=== PATIENT | male | born 1960 | race Caucasian/White ===

== ENCOUNTER → 2018-03-11 | Day surgery (SDC) | payer MEDICAID ==
[2018-03-09 11:02] VITALS: BMI 35.7
[~2018-03-11] MED LIST: LACTATED RINGERS 1,000 ML IV SCH; LIDOCAINE 1% 20 ML VIAL (10MG/ML) FOR IV START INTRADERMA ONE; MIDAZOLAM 2 MG/2 ML VIAL ONE; PROPOFOL 10 MG/ML 20 ML VIAL IV ONE; fentaNYL (PF) 50 MCG/ML 2 ML AMP ONE
[2018-03-11 09:46] VITALS: TEMP 98
--- NOTE | 2018-03-11 10:21 | P.GSHP ---
History of Present Illness H&P Date: 03/11/18 Chief Complaint: Colon cancer screening Patient here today for colonoscopy. No bowel related complaints. Last colonoscopy 10-20 years ago and that was normal. No family history of colon cancer. Past Medical History Past Medical History: Hypertension History of Any Multi-Drug Resistant Organisms: None Reported Additional Past Surgical History / Comment(s): VASCECTOMY. COLONOSCOPY Past Anesthesia/Blood Transfusion Reactions: No Reported Reaction Smoking Status: Former smoker - Past Family History Mother Family Medical History: No Reported History Medications and Allergies Home Medications Medication Instructions Recorded Confirmed Type Metoprolol Succinate (ER) [Toprol 100 mg PO DAILY 03/09/18 03/11/18 History Xl] Allergies Allergy/AdvReac Type Severity Reaction Status Date / Time No Known Allergies Allergy Verified 03/11/18 09:38 Surgical - Exam Vital Signs Temp Pulse Resp BP Pulse Ox 98.0 F 65 18 156/81 97 03/11/18 09:45 03/11/18 09:45 03/11/18 09:45 03/11/18 09:45 03/11/18 09:45 Physical exam: General: Well-developed, well-nourished HEENT: Normocephalic, sclerae nonicteric Abdomen: Nontender, nondistended Extremities: No edema Neuro: Alert and oriented Assessment and Plan (1) Colon cancer screening Narrative/Plan: Will proceed with colonoscopy at this time Current Visit: Yes Status: Acute Code(s): Z12.11 - ENCOUNTER FOR SCREENING FOR MALIGNANT NEOPLASM OF COLON SNOMED Code(s): 318084218
--- NOTE | 2018-03-11 10:37 | P.PCN ---
Date of Procedure: 03/11/18 Procedure(s) Performed: PREOPERATIVE DIAGNOSIS: Colon cancer screening POSTOPERATIVE DIAGNOSIS: Cecal polyp, transverse colon polyp, diverticulosis PROCEDURE: Colonoscopy with biopsy and snare polypectomy ANESTHESIA: MAC SURGEON: Artemio Little M.D. SPECIMENS: Polyps ENDOSCOPIC PROCEDURE: The patient was placed on the endoscopy table in the left decubitus position. The Olympus colonoscope was inserted into the anus and passed under direct visualization to the base of the cecum. The appendiceal orifice was visualized. Immediately adjacent to the base of the appendix was a small sessile polyp removed using the cold biopsy forceps. The remainder of the cecum and ascending colon appeared normal. In the transverse colon a sessile polyp was removed using the snare with cautery technique. The remainder of the transverse descending sigmoid and rectum appeared normal. There was moderate left-sided diverticulosis as well. Digital rectal examination was normal. The patient was taken to the recovery room in stable condition per anesthesia guidelines. RECOMMENDATIONS: Wait biopsy results. Anticipate colonoscopy in 5 years.
[2018-03-11 10:42] VITALS: RESP 16
[2018-03-11 10:57] VITALS: BP 132/88; PULSE 65
== END ==
LOC: ORWHC2ENDO 08:58
PROVIDERS: ATTEND Surgery
DX: Z12.11 Encounter for screening for malignant neoplasm of colon (principal); D12.0 Benign neoplasm of cecum; D12.3 Benign neoplasm of transverse colon; K57.90 Diverticulosis of intestine, part unspecified, without perforation or abscess without bleeding; Z87.891 Personal history of nicotine dependence; I10 Essential (primary) hypertension; Z79.899 Other long term (current) drug therapy
CPT/HCPCS: 88305; 45380; 45385; J2250; J3010; J2704

== ENCOUNTER → 2018-08-18 | Outpatient (CLI) | payer MEDICAID ==
--- NOTE | 2018-08-18 08:25 | US ---
EXAMINATION TYPE: US abdomen complete DATE OF EXAM: 08/18/2018 COMPARISON: NONE CLINICAL HISTORY: R74.8 ELEVATED LIVER ENZYMES. EXAM MEASUREMENTS: Liver Length: 18.0 cm Gallbladder Wall: 0.2 cm CBD: 0.2 cm Spleen: 12.1 cm Right Kidney: 11.5 x 6.4 x 5.6 cm Left Kidney: 12.1 x 5.4 x 5.0 cm Pancreas: heterogeneous Liver: mildly hyperechoic to right renal cortex; mildly enlarged at 18.0cm. Gallbladder: wnl Evidence for sonographic Lopez's sign: no CBD: wnl Spleen: wnl Right Kidney: No hydronephrosis or masses seen Left Kidney: No hydronephrosis or masses seen Upper IVC: wnl Abd Aorta: wnl and upper aorta is mildly obscured by overlying bowel gas The visualized liver is heterogeneously hyperechoic. Evaluation for focal masses is suboptimal due t o the heterogeneity. The intrahepatic portion of the IVC and visualized abdominal aorta are within no rmal limits. There is no evidence of cholelithiasis. Common bile duct is unremarkable. The visuali zed portions of the pancreas are heterogeneous. The spleen is unremarkable. Kidneys are symmetric a nd free of hydronephrosis. No renal lesions are seen. IMPRESSION: Mild hepatomegaly with heterogeneous hyperechoic appearance of liver could reflect produc t of diffuse fatty infiltration or underlying hepatocellular disease. Imaging guided random biopsy fo r tissue analysis can be performed if desired.
== END | disposition home or self-care (01) ==
LOC: RADUSWWP 07:35
PROVIDERS: ATTEND Family Medicine
DX: R16.0 Hepatomegaly, not elsewhere classified (principal)
CPT/HCPCS: 76700

== ENCOUNTER → 2019-03-22 | Outpatient (CLI) | payer MEDICAID ==
--- NOTE | 2019-03-22 10:16 | XR ---
EXAMINATION TYPE: XR chest 2V DATE OF EXAM: 03/22/2019 COMPARISON: NONE HISTORY: Cough TECHNIQUE: Frontal and lateral views of the chest are obtained. FINDINGS: There is no focal air space opacity, pleural effusion, or pneumothorax seen. The cardiac silhouette size is upper limits of normal. The osseous structures are intact. IMPRESSION: No acute cardiopulmonary process.
== END | disposition home or self-care (01) ==
LOC: RADXRMAIN 09:34
PROVIDERS: ATTEND Family Medicine
DX: R05 Cough (principal)
CPT/HCPCS: 71046

== ENCOUNTER → 2019-04-10 | Outpatient (CLI) | payer MEDICAID ==
--- NOTE | 2019-04-10 21:07 | MR ---
EXAMINATION TYPE: MR knee RT wo con DATE OF EXAM: 04/10/2019 COMPARISON: Plain film 04/06/2019 HISTORY: Pain in right knee TECHNIQUE: Multiplanar, multisequence imaging of the right knee is performed without IV contrast. FINDINGS: MEDIAL MENISCUS: There is linear abnormal increased signal within the posterior horn of the medial me niscus extending to the articular surface, the posterior aspect of the meniscus is irregular and is n ot contiguous with the root anchor. LATERAL MENISCUS: Anterior and posterior horns are intact without tear. CRUCIATE LIGAMENTS: Anterior cruciate ligament shows some associated increased signal which may be du e to strain or partial tear, posterior cruciate ligament is intact COLLATERAL LIGAMENTS: Medial collateral ligament shows irregularity, increased signal at its origin c ompatible with strain or partial tear, fluid signal is present along the course of the medial collate ral ligament. EXTENSOR MECHANISM: Visualized quadriceps and patellar tendons are intact. EFFUSION: Suprapatellar joint effusion is present. POPLITEAL CYST: No popliteal/caba cyst. TRICOMPARTMENT SPACES: Joint space loss present in the medial compartment. CARTILAGE: Grade III chondromalacia present in the medial compartment. Grade 3 to grade IV chondromal acia present at the posterior patella. BONE MARROW SIGNAL: Abnormal increased signal noted on T2-weighted sequences within the medial femora l condyle, there is likely trabecular disruption compatible with bone contusion and microtrabecular f ractures, slight cortical irregularity also suspected at the medial aspect of the medial femoral cond yle which may represent impaction fracture OTHER: Extensive soft tissue edema changes are present extending through the musculature along the f ascial planes in the subcutaneous tissues. IMPRESSION: Complex meniscal tear posterior horn medial meniscus. Bone contusion likely associated impaction frac ture, microtrabecular fractures. Strain, partial tear of the medial collateral ligament. Osteoarthrit is. Additional findings above.
== END ==
LOC: RADMRIMAIN 18:09
PROVIDERS: ATTEND Orthopaedic Surgery
DX: S83.241A Other tear of medial meniscus, current injury, right knee, initial encounter (principal); S83.411A Sprain of medial collateral ligament of right knee, initial encounter; M17.11 Unilateral primary osteoarthritis, right knee; M22.41 Chondromalacia patellae, right knee; T14.8XXA Other injury of unspecified body region, initial encounter

== ENCOUNTER 2019-04-21 07:56 | Day surgery (SDC) | payer MEDICAID ==
[2019-04-18 13:18] VITALS: BMI 34.0
--- NOTE | 2019-04-20 11:14 | HP ---
HISTORY AND PHYSICAL CHIEF COMPLAINT: Right knee pain. HISTORY OF PRESENT ILLNESS: The patient is a 59-year-old, self-employed male who presents with right knee pain progressing over the past several months. He notes it popped after squatting. He has medial pain in addition to giving way and stiffness. He has been using a brace and taking anti-inflammatories with only partial temporary relief. He notes he is limping. PAST MEDICAL HISTORY: Significant for hypertension and diabetes. PAST SURGICAL HISTORY: Negative. CURRENT MEDICATIONS: Amlodipine, aspirin, atorvastatin, glipizide, ibuprofen, lisinopril, metformin. ALLERGIES: He denies drug allergies. FAMILY HISTORY: Is negative. SOCIAL HISTORY: Significant for previous tobacco use; however, he quit in 2008. REVIEW OF SYMPTOMS: 16 point review of systems otherwise reviewed and is noncontributory. PHYSICAL EXAMINATION: On examination, the patient is approximately 5 foot 9, 230 pounds of endomorphic habitus. HEENT exam is nonfocal. NECK is supple. EXTREMITIES: He has painless passive motion of right hip. Straight leg raise is negative. Active motion right knee -12 to 115 degrees of flexion. He has a large effusion. He is tender about the medial joint line. Collaterals are stable, Luke's negative, Mili's elicits medial pain. His distal neurovascular otherwise appears intact in the right lower extremity. MRI report from 04/10/2019 of the right knee shows a large effusion along with medial femoral condyle chondral defect and a posterior medial meniscal tear. IMPRESSION: Right knee internal derangement with symptomatic medial meniscal tear and medial femoral condyle chondral defect. RECOMMENDATIONS: I talked to the patient at length regarding his condition and treatment options. He is having significant pain and mechanical symptoms that limit him despite conservative measures. After thorough discussion, he opts to proceed with surgery. We will plan to proceed with arthroscopic evaluation with possible partial medial meniscectomy and medial femoral chondrectomy. We will likely perform that as an outpatient procedure. MMODL / IJN: [id number] /
[~2019-04-21 07:56] MED LIST changes: +DEXAMETHASONE SOD PHOSPHATE 10 MG/ML 1 ML VIAL IV ONE; -LIDOCAINE 1% 20 ML VIAL (10MG/ML) FOR IV START INTRADERMA ONE; +MIDAZOLAM 2 MG/2 ML VIAL IV PRN; -MIDAZOLAM 2 MG/2 ML VIAL ONE; +ONDANSETRON 4 MG/2 ML VIAL IVP ONE; -PROPOFOL 10 MG/ML 20 ML VIAL IV ONE; +SCOPOLAMINE 1.5MG/72HR PATCH TRANSDERM ONE; +ceFAZolin IN SWFI 2 GM/20 ML SYRINGE IVP ONE; -fentaNYL (PF) 50 MCG/ML 2 ML AMP ONE
[2019-04-21 08:58] LABS: Glucose,Whole Blood 122 mg/dL (75-99)
[2019-04-21] MEDS ORDERED: LIDOCAINE 1% 20 ML VIAL (10MG/ML) FOR IV START INTRADERMA ONE (09:10)
[2019-04-21] MEDS ORDERED: HYDROmorphone (PF) 1 MG/ML ONE (09:42)
[2019-04-21] MEDS ORDERED: ePHEDrine SULFATE/0.9% NACL/PF 50 MG/5 ML SYRINGE IV ONE (09:42)
[2019-04-21] MEDS ORDERED: MIDAZOLAM 2 MG/2 ML VIAL ONE (09:42)
[2019-04-21] MEDS ORDERED: LIDOCAINE 1% INJ 10MG/ML (20 ML MDV) ONE (09:42)
[2019-04-21] MEDS ORDERED: PROPOFOL 10 MG/ML 20 ML VIAL IV ONE (09:42)
[2019-04-21] MEDS ORDERED: fentaNYL (PF) 50 MCG/ML 2 ML AMP ONE (09:42)
[2019-04-21] MEDS ORDERED: GLYCOPYRROLATE 0.2 MG/ML 2 ML VIAL ONE (09:42)
[2019-04-21] MEDS ORDERED: EPINEPHrine (PF) 1 ML in SODIUM CHLORIDE 0.9% IRRIGATIO 3,000 ML IRRIGATION ONE ×4 (09:48)
[2019-04-21] MEDS ORDERED: LACTATED RINGERS 1,000 ML IV ONE (10:30)
--- NOTE | 2019-04-21 10:38 | P.OP ---
Date of Procedure: 04/21/19 Preoperative Diagnosis: Right knee medial meniscal tear Postoperative Diagnosis: Right knee posterior medial meniscal tear/middle one third lateral meniscal tear/grade 3 chondral injury distal medial portion medial femoral condyle Procedure(s) Performed: Right knee arthroscopic partial medial meniscectomy/partial lateral meniscectomy/medial femoral chondrectomy/microfracture of the medial femoral condyle. Anesthesia: GETA Surgeon: Tutu Strickland Estimated Blood Loss (ml): 10 Pathology: none sent Condition: stable Disposition: PACU Indications for Procedure: The patient's a 59-year-old male who presents with progressive right knee pain and mechanical symptoms despite conservative measures. A discussion of the risks and benefits of operative intervention versus continued conservative measures was made with the patient. He opted to proceed with surgery. Operative risks to include infection, neurovascular injury, development of blood clots, possible incomplete resolution of symptoms, possible worsening of symptoms and need for subsequent procedures was discussed. Informed consent was obtained. Operative Findings: As below Description of Procedure: The patient was brought to the operating room, and after induction of general anesthesia examined the right knee. Collaterals were stable, Luke was negative, and posterior drawer was negative. The right lower extremity was prepped and draped in a normal fashion. A superior lateral portal was made through a 3 mm skin incision superior and lateral to the patella. This was used for outflow. A lateral portal was made through a 5 mm vertical skin incision lateral to the patella tendon above the joint line. Diagnostic arthroscopy was performed. On inspection of the medial compartment, a complex tear involving the posterior most aspect of the medial meniscus was noted extending into the root. This extended into the white-red junction.. This was debrided back to stable base with straight baskets and a motorized shaver. A grade 3 chondral injury was noted involving the medial distal aspect of the medial femoral condyle. There was a loose chondral fragment debrided back to stable base with a motorized shaver. Microfracture was performed with a chondral awl breeching the subchondral surface down to the bone marrow elements. On inspection of the notch, the anterior cruciate ligament appeared to be intact. On inspection of the lateral compartment a degenerative tear involving the middle one third of the lateral meniscus was noted in the white-white junction. This was debrided back to stable base with straight baskets and a motorized shaver.. On inspection of the patellofemoral articulation diffuse grade 2/3 chondral changes were noted with no loose chondral fragments.. The gutters were clear debris. The knee was then thoroughly irrigated. The portals were closed with Steri- Strips. A sterile dressing was applied in addition to a compression stocking. The patient was awoken from general anesthesia and transferred to recovery room in good condition. Blood loss was estimated at 10 mL. No complications were incurred.
[2019-04-21 10:47] VITALS: TEMP 97.2
[2019-04-21] MEDS: HYDROmorphone 0.5 MG/0.5 ML SYRINGE IVP PRN ×4 (10:50→11:11)
[2019-04-21] MEDS ORDERED: KETOROLAC 30 MG/ML 1 ML VIAL IVP ONE (10:55)
[2019-04-21 11:33] VITALS: RESP 16
[2019-04-21 11:42] VITALS: PULSE 65
[2019-04-21] MEDS ORDERED: HYDROcodone/APAP 7.5-325MG 1 EACH TAB PO ONE (12:14)
[2019-04-21 12:25] VITALS: BP 147/81
== END 2019-04-21 12:40 | disposition home or self-care (01) ==
LOC: OR 07:56
PROVIDERS: ATTEND Orthopaedic Surgery
DX: S83.231A Complex tear of medial meniscus, current injury, right knee, initial encounter (principal); S83.281A Other tear of lateral meniscus, current injury, right knee, initial encounter; X58.XXXA Exposure to other specified factors, initial encounter; I10 Essential (primary) hypertension; E11.9 Type 2 diabetes mellitus without complications; E78.5 Hyperlipidemia, unspecified; Z79.84 Long term (current) use of oral hypoglycemic drugs; Z79.1 Long term (current) use of non-steroidal anti-inflammatories (NSAID); Z79.82 Long term (current) use of aspirin; Z79.899 Other long term (current) drug therapy; Z87.891 Personal history of nicotine dependence
CPT/HCPCS: 29880; 29879; J2250; J1100; J2405; J0171; J2001; J3010; J1885; J1170 ×2; J2704; J0690

== ENCOUNTER → 2019-08-14 | Outpatient (CLI) | payer MEDICAID ==
--- NOTE | 2019-08-14 11:24 | NM ---
EXAMINATION TYPE: NM stress cardiolite complete DATE OF EXAM: 08/14/2019 COMPARISON: NONE HISTORY: 59-year-old male with shortness of breath, palpitations, hypertension, diabetes, hypercholes terolemia, COPD. TECHNIQUE: After the intravenous administration of 8.98 mCi Tc 99m Sestamibi - Rest images obtained 45 minutes post injection. The patient exercised using a VITALY protocol and 1 minute prior to peak exercise was injected with 26.1 mCi Tc 99m Sestamibi - Stress images obtained 15 minutes post injecti on. FINDINGS: Target heart rate was 135 BPM. Heart rate reached was 136 BPM. Total exercise time 6 minutes 28 secon ds. Targeted heart rate was achieved during performance of the study. Review of stress and rest SPECT images demonstrates decreased perfusion along the inferior wall more pronounced on the rest images. No distinct reversibility is identified. Gated analysis shows normal w all motion with an estimated left ventricular ejection fraction of 55 %. TID is calculated at 1.0 4, within normal limits. IMPRESSION: 1. Borderline LVEF calculated at 55%. 2. Prominent diaphragmatic attenuation is suggested. No definite suspicious reversibility.
--- NOTE | 2019-08-14 13:14 | EST ---
EXERCISE STRESS AGE: 59 SEX: Male HT: 68" WT: 240 pounds PROTOCOL: Cardiolite Shamir STAGE: II DURATION OF EXERCISE: 6 minutes 28 seconds HEART RATE REST: 63 BLOOD PRESSURE REST: 124/84 MAXIMUM HEART RATE ACHIEVED: 136 MAXIMUM BLOOD PRESSURE: 209/78 85% MPHR: 135 100% MPHR: 159 METS: 7.1 INDICATIONS: CLINICAL INFORMATION: Baseline rhythm is a sinus mechanism, rate 63, normal axis and intervals, normal electrocardiogram. Baseline blood pressure 124/84 mmHg. Patient exercised on Shamir protocol for 6 minute 28 seconds reaching peak rate 136 beats per minute which is equal to 86% maximum predicted heart rate. Peak blood pressure 209/78 mmHg. Test was terminated secondary to fatigue. There is no chest pain. Electrocardiographic monitoring revealed rare PACs. There was no evidence of diagnostic ischemic ST deviation. CONCLUSION: 1. Average exercise tolerance with no evidence of chest discomfort. 2. Rare PACs. 3. Normal electrocardiographic response to exercise with no evidence of exercise induced ischemia. MMODL / IJN: [id number] /
== END | disposition home or self-care (01) ==
LOC: RADNMMAIN 08:17
PROVIDERS: ATTEND Family Medicine
DX: R06.09 Other forms of dyspnea (principal); E11.9 Type 2 diabetes mellitus without complications; I10 Essential (primary) hypertension; E78.5 Hyperlipidemia, unspecified; E66.9 Obesity, unspecified; L74.9 Eccrine sweat disorder, unspecified
CPT/HCPCS: 93017; 78452; A9500

== ENCOUNTER → 2019-08-31 | Outpatient (CLI) | payer MEDICAID ==
--- NOTE | 2019-08-31 12:00 | ECHOF ---
Referral Reason:I10 hypertension, R06.09 dyspnea MEASUREMENTS -------- HEIGHT: 175.3 cm WEIGHT: 108.9 kg BP: RVIDd: 4.6 cm (< 3.3) IVSd: 1.5 cm (0.6 - 1.1) LVIDd: 4.8 cm (3.9 - 5.3) LVPWd: 1.4 cm (0.6 - 1.1) IVSs: 2.0 cm LVIDs: 3.5 cm LVPWs: 1.9 cm LAESV Index (A-L): 35.34 ml/m Ao Diam: 3.9 cm (2.0 - 3.7) AV Cusp: 1.6 cm (1.5 - 2.6) LA Diam: 3.9 cm (2.7 - 3.8) TAPSE: 3.0 cm EPSS: 1.4 cm MV E Harrison: 0.95 m/s MV DecT: 188 ms MV A Harrison: 0.53 m/s MV E/A Ratio: 1.80 RAP: 5.00 mmHg RVSP: 38.02 mmHg MV EF SLOPE: 97.05 mm/s (70 - 150) MV EXCURSION: 1.30 cm (> 18.000) FINDINGS -------- Sinus rhythm. The left ventricular size is normal. There is moderate concentric left ventricular hypertrophy. O verall left ventricular systolic function is low-normal with, an EF between 50 - 55 %. The diastoli c filling pattern is normal for the age of the patient. The right ventricle is severely enlarged. Left atrium is moderately dilated by volume. The right atrium is mildly enlarged. Interatrial and interventricular septum intact. The aortic valve was not well visualized. There is no evidence of aortic regurgitation. There is no evidence of aortic stenosis. Moderate mitral regurgitation is present. Mild tricuspid regurgitation present. There is mild pulmonary hypertension. The right ventricular systolic pressure, as measured by Doppler, is 38.02mmHg. There is no pulmonic regurgitation present. The aortic root size is normal. The inferior vena cava is mildly dilated. There is no pericardial effusion. CONCLUSIONS -------- 1. Sinus rhythm. 2. The left ventricular size is normal. 3. There is moderate concentric left ventricular hypertrophy. 4. Overall left ventricular systolic function is low-normal with, an EF between 50 - 55 %. 5. The diastolic filling pattern is normal for the age of the patient. 6. The right ventricle is severely enlarged. 7. Left atrium is moderately dilated by volume. 8. The right atrium is mildly enlarged. 9. Interatrial and interventricular septum intact. 10. The aortic valve was not well visualized. 11. There is no evidence of aortic regurgitation. 12. There is no evidence of aortic stenosis. 13. Moderate mitral regurgitation is present. 14. Mild tricuspid regurgitation present. 15. There is mild pulmonary hypertension. 16. The right ventricular systolic pressure, as measured by Doppler, is 38.02mmHg. 17. There is no pulmonic regurgitation present. 18. The aortic root size is normal. 19. The inferior vena cava is mildly dilated. 20. There is no pericardial effusion. BUILDINGS PAINTER: ANASTASIIA Green
== END | disposition home or self-care (01) ==
LOC: RADECHMAIN 08:24
PROVIDERS: ATTEND Family Medicine
DX: I08.1 Rheumatic disorders of both mitral and tricuspid valves (principal); I27.20 Pulmonary hypertension, unspecified; I87.8 Other specified disorders of veins; I10 Essential (primary) hypertension
CPT/HCPCS: 93306

== ENCOUNTER → 2021-01-22 | Outpatient (CLI) | payer MEDICAID ==
[2021-01-22 17:55] LABS: African American GFR (CKD) >90 (>60 ml/min/1.73 sqM); Blood Urea Nitrogen 16 mg/dL (9-20); Non-African American GFR(CKD) 86 (>60 ml/min/1.73 sqM)
--- NOTE | 2021-01-22 19:01 | CT ---
EXAMINATION TYPE: CT abdomen w con DATE OF EXAM: 01/22/2021 COMPARISON: Ultrasound 08/18/2018. HISTORY: Abnormal liver function tests. CT DLP: 1763.40 mGycm Automated exposure control for dose reduction was used. TECHNIQUE: Helical acquisition of images was performed from the lung bases through the top of iliac crest to include entire abdomen. CONTRAST: Performed with Oral Contrast and with IV Contrast, patient injected with 100 mL of Isovue 300. FINDINGS: LUNG BASES: No significant abnormality is appreciated. LIVER/GB: No significant abnormality is appreciated. Hepatic steatosis. PANCREAS: No significant abnormality is seen. SPLEEN: No significant abnormality is seen. ADRENALS: No significant abnormality is seen. KIDNEYS: No significant abnormality is seen. BOWEL: No acute abnormality is seen. Small fat-containing periumbilical hernia. LYMPH NODES: No significant abnormality is seen. OSSEOUS STRUCTURES: No significant abnormality is seen. FREE AIR: No free air is visualized. OTHER: None IMPRESSION: NO ACUTE ABNORMALITY. HEPATIC STEATOSIS.
== END | disposition home or self-care (01) ==
LOC: RADCTMAIN 17:21
PROVIDERS: ATTEND Family Medicine
DX: K76.0 Fatty (change of) liver, not elsewhere classified (principal); R74.8 Abnormal levels of other serum enzymes
CPT/HCPCS: 82565; 84520; 74160; 36415; Q9967

== ENCOUNTER → 2022-08-18 | Outpatient (CLI) | payer MEDICAID ==
[2022-08-18 18:38] LABS: Basophils # (A) 0.07 X 10*3/uL (0.00-0.10); Basophils % (A) 0.9 %; Eosinophils # (A) 0.11 X 10*3/uL (0.04-0.35); Eosinophils % (A) 1.4 %; HCT 46.7 % (39.6-50.0); Immature Grans, Automated 0.5 %; Lymphocytes # (A) 2.96 X 10*3/uL (0.90-5.00); Lymphocytes % (A) 37.4 %; MCH 32.1 pg (27.0-32.0); MCHC 34.3 g/dL (32.0-37.0); MCV 93.8 fL (80.0-97.0); Mean Platelet Volume 11.1 fL (9.5-12.2); Monocytes # (A) 0.69 X 10*3/uL (0.20-1.00); Monocytes % (A) 8.7 %; NRBC Per 100 WBC 0 /100 WBCS (0.0-0.0); Neutrophils # (A) 4.05 X 10*3/uL (1.80-7.70); Neutrophils % (A) 51.1 %; Platelet Count 193 X 10*3/uL (140-440); RBC 4.98 X 10*6/uL (4.40-5.60); RDW 12.5 % (11.5-14.5); WBC 7.92 X 10*3/uL (4.50-10.00)
[2022-08-18 18:57] LABS: ALT 82 U/L (10-49); AST 78 U/L (14-35); African American GFR (CKD) 98.3 (60.0-200.0); Albumin 4.6 g/dL (3.8-4.9); Albumin/Globulin Ratio 1.75 (1.60-3.17); Alkaline Phosphatase 100 U/L (41-126); BUN/Creat Ratio 11.01 Ratio (12.00-20.00); Blood Urea Nitrogen 10.4 mg/dL (9.0-27.0); Calcium 9.4 mg/dL (8.7-10.3); Carbon Dioxide 25.7 mmol/L (20.0-27.5); Chloride 105 mmol/L (96-109); Chol/HDL Ratio 4.79 Ratio; Globulin 2.6 g/dL (1.6-3.3); Glucose 115 mg/dL (70-110); LDL Cholesterol,Calculated 158.4 mg/dL (0.0-131.0); Non-African American GFR(CKD) 84.8 (60.0-200.0); Potassium 4.7 mmol/L (3.5-5.5); Sodium 141 mmol/L (135-145); Total Protein 7.2 g/dL (6.2-8.2)
[2022-08-20 03:54] LABS: Hepatitis B Core IgM Nonreactive (Nonreactive); Hepatitis B Surface Antigen Nonreactive (Nonreactive); Hepatitis C IgG Antibody Nonreactive (Nonreactive)
[2022-08-20 03:55] LABS: Hepatitis A Antibody IgM Nonreactive (Nonreactive)
[2022-08-20 04:25] LABS: % Iron Saturation 47.44 (15.00-50.00)
== END | disposition home or self-care (01) ==
LOC: LABWHC1 12:19
PROVIDERS: ATTEND Internal Medicine
DX: Z12.5 Encounter for screening for malignant neoplasm of prostate (principal); E11.9 Type 2 diabetes mellitus without complications
CPT/HCPCS: 80061; 80053; 84443; 85025; 82043; 82570; 83036; 36415; G0103; 80074; 82728; 83540; 83550

== ENCOUNTER → 2022-09-01 | Outpatient (CLI) | payer MEDICAID ==
--- NOTE | 2022-09-01 08:46 | US ---
EXAMINATION TYPE: US liver DATE OF EXAM: 09/01/2022 COMPARISON: CT abdomen January 22, 2021 CLINICAL HISTORY: K76.0 FATTY (CHANGE OF) LIVER, NOT ELSEWHERE CLASS. Fatty liver per order. TECHNIQUE: Multiple sonographic images of the right upper quadrant are obtained. 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 Pancreas: Not well seen. Liver: Increased echogenicity and attenuation. Appears very coarse and enlarged. Gallbladder: Multiple folds seen. Measures 4.2 cm in width. Evidence for sonographic Lopez's sign: No CBD: Portions seen appear wnl Right Kidney: Appears minimally enlarged. No hydronephrosis or masses seen Suboptimal evaluation of pancreas on initial images. Visualized liver heterogeneously hyperechoic con sistent with fatty infiltrative hepatocellular disease. No adjacent ascites. No biliary dilatation. N o intraluminal gallstones. No right-sided hydronephrosis. IMPRESSION: Fatty infiltrated hepatocellular disease redemonstrated.
== END | disposition home or self-care (01) ==
LOC: RADUSWWP 08:15
PROVIDERS: ATTEND Internal Medicine
DX: K76.0 Fatty (change of) liver, not elsewhere classified (principal)
CPT/HCPCS: 76705

== ENCOUNTER 2023-07-27 08:58 | Day surgery (SDC) | payer MEDICAID ==
[2023-07-21 15:20] VITALS: BMI 34.7
[2023-07-27] MEDS ORDERED: LACTATED RINGERS 1,000 ML IV SCH (09:26)
[2023-07-27] MEDS ORDERED: LIDOCAINE 1% (10MG/ML) FOR IV START INTRADERMA PRN (09:26)
[2023-07-27 09:36] VITALS: TEMP 98
[2023-07-27 09:47] LABS: Glucose,Whole Blood 132 mg/dL (70-110)
[2023-07-27] MEDS ORDERED: PROPOFOL 10 MG/ML 20 ML VIAL IV ONE (09:51)
--- NOTE | 2023-07-27 09:57 | P.GSHP ---
History of Present Illness H&P Date: 07/27/23 Chief Complaint: Colon cancer screening 63-year-old male with history of colon polyps. No family history of colon cancer. No bowel complaints. Last colonoscopy 5 years ago. Past Medical History Past Medical History: Diabetes Mellitus, Hyperlipidemia, Hypertension, Musculoskeletal Disorder Additional Past Medical History / Comment(s): RT KNEE INJURY. BRONCHITIS. WEARS RT KNEE BRACE. History of Any Multi-Drug Resistant Organisms: None Reported Past Surgical History: Orthopedic Surgery Additional Past Surgical History / Comment(s): VASECTOMY. COLONOSCOPY. RT KNEE SX Past Anesthesia/Blood Transfusion Reactions: No Reported Reaction Smoking Status: Former smoker - Past Family History Mother Family Medical History: Cancer Additional Family Medical History / Comment(s): KIDNEY CA Medications and Allergies Home Medications Medication Instructions Recorded Confirmed Type Atorvastatin [Lipitor] 10 mg PO AC-SUPPER 04/18/19 07/27/23 History Ibuprofen [Motrin] 800 mg PO DIRECTED PRN 04/18/19 07/27/23 History amLODIPine BESYLATE 10 mg PO AC-SUPPER 04/18/19 07/27/23 History Losartan [Cozaar] 50 mg PO AC-SUPPER 07/21/23 07/27/23 History Semaglutide [Ozempic] 0.25 mg SQ SAHA 07/21/23 07/27/23 History Allergies Allergy/AdvReac Type Severity Reaction Status Date / Time No Known Allergies Allergy Verified 07/27/23 09:31 Surgical - Exam Vital Signs Temp Pulse Resp BP Pulse Ox 98.0 F 66 18 173/88 97 07/27/23 09:35 07/27/23 09:35 07/27/23 09:35 07/27/23 09:35 07/27/23 09:35 Physical exam: General: Well-developed, well-nourished HEENT: Normocephalic, sclerae nonicteric Abdomen: Nontender, nondistended Extremities: No edema Neuro: Alert and oriented Results - Labs Abnormal Lab Results - Last 24 Hours (Table) 07/27/23 Range/Units 09:42 POC Glucose (mg/dL) 132 H (70-110) mg/dL Assessment and Plan (1) Colon cancer screening Narrative/Plan: Will proceed with colonoscopy at this time. Current Visit: No Status: Acute Code(s): Z12.11 - ENCOUNTER FOR SCREENING FOR MALIGNANT NEOPLASM OF COLON SNOMED Code(s): 409549317
--- NOTE | 2023-07-27 10:11 | P.PCN ---
Date of Procedure: 07/27/23 Procedure(s) Performed: PREOPERATIVE DIAGNOSIS: Colon cancer screening POSTOPERATIVE DIAGNOSIS: Ascending colon polyp, diverticulosis PROCEDURE: Colonoscopy with snare polypectomy ANESTHESIA: MAC SURGEON: Artemio Little M.D. SPECIMENS: Ascending colon polyp ENDOSCOPIC PROCEDURE: The patient was placed on the endoscopy table in the left decubitus position. The Olympus colonoscope was inserted into the anus and passed under direct visualization to the base of the cecum. The appendiceal orifice was visualized. From that point the scope was slowly withdrawn inspecting all surfaces carefully. There were no neoplastic inflammatory or polypoid lesions throughout the cecum. In the ascending colon a small polyp was seen and removed using the snare cautery technique. The remainder of the ascending transverse descending sigmoid and rectum appeared normal. There was mild sided diverticulosis. Digital rectal examination was normal. The patient was taken to the recovery room in stable condition per anesthesia guidelines. RECOMMENDATIONS: Await biopsy results. Repeat colonoscopy 5 years.
[2023-07-27 10:20] VITALS: RESP 16
[2023-07-27 10:42] VITALS: BP 105/76; PULSE 84
== END 2023-07-27 10:45 | disposition home or self-care (01) ==
LOC: ORWHC2ENDO 08:58
PROVIDERS: ATTEND Surgery
DX: Z12.11 Encounter for screening for malignant neoplasm of colon (principal); D12.2 Benign neoplasm of ascending colon; K57.30 Diverticulosis of large intestine without perforation or abscess without bleeding; E11.9 Type 2 diabetes mellitus without complications; E78.5 Hyperlipidemia, unspecified; I10 Essential (primary) hypertension; Z86.010 Personal history of colon polyps; Z87.891 Personal history of nicotine dependence; Z80.51 Family history of malignant neoplasm of kidney; Z79.02 Long term (current) use of antithrombotics/antiplatelets; Z79.899 Other long term (current) drug therapy; Z98.890 Other specified postprocedural states
CPT/HCPCS: 88305; 45385; J2704

== ENCOUNTER → 2024-03-22 | Outpatient (CLI) | payer MEDICAID ==
--- NOTE | 2024-03-22 15:47 | US ---
EXAMINATION TYPE: US venous doppler duplex LE DATE OF EXAM: 03/22/2024 3:32 PM COMPARISON: NONE CLINICAL INDICATION: Male, 63 years old with history of M79.89 OTHER SPECIFIED SOFT TISSUE DISORDERS; SIDE PERFORMED: Bilateral TECHNIQUE: The lower extremity deep venous system is examined utilizing real time linear array sonog patricia with graded compression, doppler sonography and color-flow sonography. VESSELS IMAGED: Common Femoral Vein Deep Femoral Vein Greater Saphenous Vein * Femoral Vein Popliteal Vein Small Saphenous Vein * Proximal Calf Veins (* superficial vessels) Right Leg: Negative for DVT Left Leg: Negative for DVT Lymph node noted within the right groin measuring 2.4 x 1.0 cm IMPRESSION: Grayscale, color doppler, spectral doppler imaging performed of the deep veins of the lo wer extremities. There is normal flow, compressibility, vascular waveforms. Negative bilateral lower extremity exam for DVT.
--- NOTE | 2024-03-23 08:07 | XR ---
EXAMINATION TYPE: XR chest 2V DATE OF EXAM: 03/22/2024 COMPARISON: 03/22/2019 HISTORY: Shortness of breath TECHNIQUE: Frontal and lateral views of the chest are obtained. FINDINGS: Scattered senescent parenchymal changes noted. Hyperinflation compatible with COPD. No evidence for infiltrate. No evidence for atelectasis. Heart size is stable. Mediastinal structures are stable and grossly unremarkable. No evidence for hilar prominence. Degenerative changes dorsal spine. IMPRESSION: 1. No evidence for acute pulmonary disease.
== END | disposition home or self-care (01) ==
LOC: RADUSWWP 15:05
PROVIDERS: ATTEND Internal Medicine
DX: M79.89 Other specified soft tissue disorders (principal); R06.02 Shortness of breath; R68.83 Chills (without fever)
CPT/HCPCS: 71046; 93970

== ENCOUNTER → 2024-03-24 | Outpatient (CLI) | payer MEDICAID ==
[2024-03-24 18:12] LABS: African American GFR (CKD) 71 (>60 ml/min/1.73 sqM); Blood Urea Nitrogen 20 mg/dL (9-20); Non-African American GFR(CKD) 61 (>60 ml/min/1.73 sqM)
[2024-03-24 18:29] LABS: Basophils % (A) 0 %; Eosinophils # (A) 0.1 k/uL (0-0.7); Eosinophils % (A) 1 %; HCT 44.6 % (39.0-53.0); HGB 15.4 gm/dL (13.0-17.5); Lymphocytes # (A) 1.3 k/uL (1.0-4.8); Lymphocytes % (A) 14 %; MCH 32.7 pg (25.0-35.0); MCHC 34.5 g/dL (31.0-37.0); MCV 94.7 fL (80.0-100.0); Mean Platelet Volume 9.2; Monocytes # (A) 0.7 k/uL (0-1.0); Monocytes % (A) 8 %; Neutrophils # (A) 6.7 k/uL (1.3-7.7); Neutrophils % (A) 73 %; Platelet Count 201 k/uL (150-450); RBC 4.71 m/uL (4.30-5.90); RDW 12.8 % (11.5-15.5); WBC 9.2 k/uL (3.8-10.6)
[2024-03-24 19:38] LABS: RBC Morphology Normal
[2024-03-25 06:31] LABS: ALT 67 U/L (10-49); AST 67 U/L (14-35); Albumin 4.4 g/dL (3.8-4.9); Albumin/Globulin Ratio 1.63 Ratio (1.60-3.17); Alkaline Phosphatase 124 U/L (41-126); BUN/Creat Ratio 15.42 Ratio (12.00-20.00); Blood Urea Nitrogen 18.5 mg/dL (9.0-27.0); Calcium 9.3 mg/dL (8.7-10.3); Carbon Dioxide 24.4 mmol/L (21.6-31.8); Chloride 105 mmol/L (96-109); Globulin 2.7 g/dL (1.6-3.3); Glucose 137 mg/dL (70-110); Potassium 4.4 mmol/L (3.5-5.5); Protein, Total 7.1 g/dL (6.2-8.2); Sodium 140 mmol/L (135-145); Total Protein 7.1 g/dL (6.2-8.2)
--- NOTE | 2024-03-27 11:38 | CT ---
EXAMINATION TYPE: CT abdomen pelvis w con CT DLP: 1789 mGycm, Automated exposure control for dose reduction was used. DATE OF EXAM: 03/24/2024 7:46 PM COMPARISON: CT abdomen pelvis most recent from 01/22/2021 CLINICAL INDICATION:Male, 63 years old with history of R59.1 GENERALIZED ENLARGED LYMPH NODES; enlarg ed lymph nodes TECHNIQUE: Axial CT abdomen pelvis w con;Sagittal and coronal reformats were created on a separate w orkstation. Contrast used:100 mL of Isovue 300 with IV Contrast, (none if empty) Oral contrast used: with Oral Contrast (none if empty) FINDINGS: LOWER CHEST: Unremarkable ABDOMEN LIVER: Unremarkable GALLBLADDER AND BILE DUCTS: Unremarkable. PANCREAS: Unremarkable. SPLEEN: Unremarkable. ADRENAL GLANDS: Unremarkable. KIDNEYS AND URETERS: No evidence of hydronephrosis or renal calculus. The ureters are unremarkable. PELVIS BLADDER: Unremarkable REPRODUCTIVE: Prostate is enlarged in size measuring 5.7 cm in transverse dimension. ABDOMEN & PELVIS STOMACH AND BOWEL: No evidence of bowel obstruction. Scattered colonic diverticula. The appendix is n ormal. PERITONEUM/RETROPERITONEUM: No evidence of pneumoperitoneum or free fluid. VASCULATURE: No evidence of aortic aneurysm. MUSCULOSKELETAL: No acute osseous abnormalities LYMPH NODES: No gross evidence for lymphadenopathy. No greater than 1.0 cm lymph node identified. SOFT TISSUE/ABDOMINAL WALL: Fat-containing umbilical hernia. Fat-containing inguinal hernia. Fat stra nding changes in the right groin with lymph node with fatty hilum measuring up to 9 mm. IMPRESSION: 1. Right inguinal lymph nodes with fat stranding changes correlate for adenitis. No greater than 1.0 cm lymph node identified. 2. Bilateral fat-containing inguinal hernias. 3. Fat-containing umbilical hernia. 4. Prostatomegaly correlate with serum PSA.
[2024-03-27 12:55] LABS: HIV 2 AB Non-Reactive (Non-Reactive); HIV AB P24 Non-Reactive (Non-Reactive); HIV P24 AG Non-Reactive (Non-Reactive)
[2024-03-28 20:28] LABS: Albumin 4.04 g/dL (3.80-4.90); Gamma Globulin 0.82 g/dL (0.70-1.50)
== END | disposition home or self-care (01) ==
LOC: RADCTMAIN 16:54
PROVIDERS: ATTEND Internal Medicine
DX: K40.20 Bilateral inguinal hernia, without obstruction or gangrene, not specified as recurrent (principal); K42.9 Umbilical hernia without obstruction or gangrene; N40.0 Benign prostatic hyperplasia without lower urinary tract symptoms; R59.1 Generalized enlarged lymph nodes
CPT/HCPCS: 86665; 80053; 82565; 84520; 85025; 84165; 86038; 87390; 74177; 36415; Q9967

== ENCOUNTER → 2024-03-29 | Outpatient (CLI) | payer MEDICAID ==
[2024-03-29 11:39] LABS: GGT 162 U/L (0-73)
[2024-03-29 11:40] LABS: % Iron Saturation 33.24 (15.00-50.00); Iron 115 UG/DL (65-175); Total Iron Binding Capacity 346 UG/DL (228-460)
[2024-03-29 11:45] LABS: ALT 80 U/L (10-49); AST 37 U/L (14-35); Albumin 4.3 g/dL (3.8-4.9); Albumin/Globulin Ratio 1.79 Ratio (1.60-3.17); Alkaline Phosphatase 131 U/L (41-126); BUN/Creat Ratio 21.38 Ratio (12.00-20.00); Bilirubin, Conjugated <0.20 mg/dL (0.20-0.40); Bilirubin,Unconjugated >0.20 mg/dL (0.20-1.00); Blood Urea Nitrogen 17.1 mg/dL (9.0-27.0); Calcium 9.7 mg/dL (8.7-10.3); Carbon Dioxide 21.5 mmol/L (21.6-31.8); Chloride 106 mmol/L (96-109); Globulin 2.4 g/dL (1.6-3.3); Glucose 145 mg/dL (70-110); Potassium 4.8 mmol/L (3.5-5.5); Sodium 139 mmol/L (135-145); Total Bilirubin 0.4 mg/dL (0.3-1.2); Total Protein 6.7 g/dL (6.2-8.2)
[2024-03-29 13:50] LABS: Hepatitis A Antibody IgM Nonreactive (Nonreactive); Hepatitis B Core IgM Nonreactive (Nonreactive); Hepatitis B Surface Antigen Nonreactive (Nonreactive); Hepatitis C IgG Antibody Nonreactive (Nonreactive)
[2024-03-29 14:03] LABS: Ceruloplasmin 29.2 mg/dL (20.0-60.0)
== END | disposition home or self-care (01) ==
LOC: LABWHC1 07:31
PROVIDERS: ATTEND Internal Medicine
DX: R74.8 Abnormal levels of other serum enzymes (principal)
CPT/HCPCS: 36415; 80053; 80074; 82248; 82390; 82525; 82977; 83516; 83540; 83550; 86038; 86645

== ENCOUNTER → 2024-04-04 | Outpatient (CLI) | payer MEDICAID ==
--- NOTE | 2024-04-05 20:04 | CA ---
Transthoracic Echo Report Name: Wilbert Quevedo Age: 64 Gender: M : 1960 Exam Date: 04/04/2024 16:00 Exam Location: [facility] Ht (in): 69 Wt (lb): 235 Ordering Physician: Siva Gardiner DO Attending/Referring Phys: Siva Gardiner DO Release Coordinator Jeannie Lopez, RDALEXANDRO Procedure CPT: Indications: M79.89 leg swelling Cardiac Hx: Technical Quality: Fair Contrast 1: Definity Total Dose (mL): 2 Contrast 2: Total Dose (mL): MEASUREMENTS (Male / Female) Normal Values 2D ECHO LV Diastolic Diameter PLAX 5.8 cm 4.2 - 5.9 / 3.9 - 5.3 cm LV Systolic Diameter PLAX 4.1 cm IVS Diastolic Thickness 1.2 cm 0.6 - 1.0 / 0.6 - 0.9 cm LVPW Diastolic Thickness 1.3 cm 0.6 - 1.0 / 0.6 - 0.9 cm LV Relative Wall Thickness 0.4 RV Internal Dim ED PLAX 2.9 cm LA Systolic Diameter LX 4.2 cm 3.0 - 4.0 / 2.7 - 3.8 cm M-MODE Aortic Root Diameter MM 3.8 cm LA Systolic Diameter MM 3.9 cm LA Ao Ratio MM 1.0 AV Cusp Separation MM 2.2 cm DOPPLER Mitral E Point Velocity 74.6 cm/s Mitral A Point Velocity 90.9 cm/s Mitral E to A Ratio 0.8 MV Deceleration Time 327.7 ms MV E' Velocity 6.5 cm/s Mitral E to MV E' Ratio 11.5 TR Peak Velocity 209.4 cm/s TR Peak Gradient 17.5 mmHg Right Ventricular Systolic Press 22.6 mmHg FINDINGS Left Ventricle Left ventricular ejection fraction is estimated at 55-60 %. Mildly increased septal wall thickness. Left ventricular cavity size normal. Normal left ventricular systolic function with no obvious regional wall motion abnormalities. Right Ventricle Right ventricle not well visualized. Moderate right ventricular dilatation. Right ventricular systolic pressure within normal limits. Right Atrium Mild right atrial dilatation. Left Atrium Mildly increased left atrial diameter. Mitral Valve Structurally normal mitral valve. Mitral annular calcification. Trace mitral regurgitation. No mitral stenosis. Aortic Valve Trileaflet aortic valve. No aortic valve stenosis or regurgitation. Tricuspid Valve Structurally normal tricuspid valve. Mild tricuspid regurgitation. Pulmonic Valve Structurally normal pulmonic valve. No pulmonic stenosis. No pulmonic regurgitation. Pericardium No pericardial or pleural effusion. Aorta Mildly dilated aortic annulus. CONCLUSIONS Normal LV systolic function Previewed by: Dr. Neel Sanders MD (Electronically Signed) Final Date: 05 Apr 2024 20:03
== END | disposition home or self-care (01) ==
LOC: RADECHMAIN 15:40
PROVIDERS: ATTEND Internal Medicine
DX: M79.89 Other specified soft tissue disorders (principal)
CPT/HCPCS: 93306

== ENCOUNTER → 2024-05-19 | Outpatient (CLI) | payer MEDICAID ==
--- NOTE | 2024-05-19 15:40 | US ---
EXAMINATION TYPE: US groin RT DATE OF EXAM: 05/19/2024 COMPARISON: CT abdomen and pelvis dated 03/24/2027 CLINICAL INDICATION: Male, 64 years old with history of LYMPHADENOPATHY R591; Follow up lymph node ri ght groin TECHNIQUE: Multiple color and grayscale images were obtained. FINDINGS: Multiple lymph nodes right groin, largest = 2.8 x 1.0 x 1.8cm IMPRESSION: Increasing Lymphadenopathy in the right groin. There has been significant interval enlar gement. The largest lymph nodes on the CT the abdomen and pelvis dated 03/24/2027 or 1 cm in size. The lymph nodes are amenable to ultrasound-guided fine-needle aspiration.
== END | disposition home or self-care (01) ==
LOC: RADUSWWP 12:58
PROVIDERS: ATTEND Internal Medicine
DX: R59.0 Localized enlarged lymph nodes (principal)

== ENCOUNTER 2024-06-08 07:42 | Day surgery (SDC) | payer MEDICAID ==
[2024-06-08 09:39] VITALS: BP 130/75; PULSE 61; RESP 16; TEMP 98
--- NOTE | 2024-06-08 10:11 | US ---
EXAMINATION TYPE: US discontinued FNA panel DATE OF EXAM: 06/08/2024 9:55 AM CLINICAL INDICATION:Male, 64 years old with history of R59.1 GENERALIZED ENLARGED LYMPH NODES; COMPARISON: CT 03/24/2024, groin ultrasound 05/19/2024 ATTENDING: Dr. Alvin Tilley PROCEDURE: Ultrasound imaging demonstrates multiple lymph nodes in the right groin correlating with prior CT and ultrasound. These lymph nodes have a normal morphology with fatty hilum in without thickened cortex. Patient agreed to follow-up PET/CT. IMPRESSION: Procedure canceled, multiple lymph nodes with normal fatty hilum without thickened cortex in the righ t inguinal region. It is recommended for follow-up with CT imaging due to compare to 03/24/2024 CT. Fi ndings favor infectious/inflammatory process not neoplastic process given reniform morphology with fa tty hilum.
== END 2024-06-08 10:00 | disposition home or self-care (01) ==
LOC: RADPROMAIN 07:42
PROVIDERS: ATTEND Internal Medicine
DX: Z53.8 Procedure and treatment not carried out for other reasons (principal); R59.1 Generalized enlarged lymph nodes
CPT/HCPCS: 76536

== ENCOUNTER → 2024-06-08 | Outpatient (CLI) | payer MEDICAID ==
--- NOTE | 2024-06-08 23:29 | US ---
EXAMINATION TYPE: US liver DATE OF EXAM: 06/08/2024 COMPARISON: CT 03/24/2024 US 09/01/2022 CLINICAL INDICATION: Male, 64 years old with history of R74.01 ELEVATION OF LEVELS OF LIVER TRANSAMIN ASE L; Hx Fatty Liver, Former smoker, Former drinker; Hx HTN DM TECHNIQUE: Multiple sonographic images of the right upper quadrant are obtained. 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
== END | disposition home or self-care (01) ==
LOC: RADUSWWP 07:24
PROVIDERS: ATTEND Internal Medicine Gastroenterology
DX: R74.01 Elevation of levels of liver transaminase levels (principal); Z87.891 Personal history of nicotine dependence
CPT/HCPCS: 76705

== ENCOUNTER → 2024-06-09 | Outpatient (CLI) | payer MEDICAID ==
[2024-06-09 10:22] LABS: African American GFR (CKD) >90 (>60 ml/min/1.73 sqM); Blood Urea Nitrogen 15 mg/dL (9-20); Non-African American GFR(CKD) 90 (>60 ml/min/1.73 sqM)
--- NOTE | 2024-06-09 11:09 | CT ---
EXAMINATION TYPE: CT pelvis w con DATE OF EXAM: 06/09/2024 COMPARISON: 03/24/2024 HISTORY: 64-year-old male R59.1 enlarged lymph nodes right sided TECHNIQUE: Contiguous axial scanning of the pelvis following administration of 100 ml Isovue 300 IV c ontrast. Delayed images through the kidneys and coronal/sagittal reconstructions performed. CT DLP: 1363 mGycm Automated exposure control for dose reduction was used. FINDINGS: Small fatty umbilical hernia measuring 4.0 cm wide. No dilated small bowel, free fluid, or free air. Scattered mild stool. There is mid sigmoid diverticulosis but now with mild circumferential wall thic kening and some pericolonic fat stranding. Prominent vessels or mild inflammation are both considerat ions. Correlate with symptoms. Moderate circumferential bladder wall thickening. Prostate gland enlargement 5.7 cm wide. Patulous bi lateral inguinal canals with a small fatty direct right inguinal hernia on the right. No abnormal flu id collection in the pelvis. No inguinal or pelvic adenopathy seen. Bones: Some facet arthropathy in the lower lumbar spine. No osseous destructive process. IMPRESSION: 1. MID SIGMOID DIVERTICULOSIS. THERE IS MILD WALL THICKENING HERE AND SOME PERICOLONIC STRANDING. EIT HER PROMINENT PERICOLONIC VESSELS VERSUS MILD INFLAMMATION RELATING TO A MILD ACUTE DIVERTICULITIS AR E BOTH CONSIDERATIONS. CORRELATE WITH SYMPTOMS. 2. MODERATE CIRCUMFERENTIAL BLADDER WALL THICKENING. THIS MAY BE CHRONIC FOR THE PATIENT GIVEN THE CT OSTATOMEGALY OF 5.7 CM WIDE. CORRELATE TO EXCLUDE CYSTITIS. 3. SMALL FATTY DIRECT RIGHT INGUINAL HERNIA. SMALL FATTY UMBILICAL HERNIA. 4. No kira inguinal adenopathy seen. The previous right inguinal nodes and fat stranding has improve d.
== END | disposition home or self-care (01) ==
LOC: RADCTMAIN 09:45
PROVIDERS: ATTEND Internal Medicine
DX: R59.1 Generalized enlarged lymph nodes (principal); K57.30 Diverticulosis of large intestine without perforation or abscess without bleeding; K40.90 Unilateral inguinal hernia, without obstruction or gangrene, not specified as recurrent; K42.9 Umbilical hernia without obstruction or gangrene; N40.0 Benign prostatic hyperplasia without lower urinary tract symptoms
CPT/HCPCS: 82565; 84520; 72193; 36415; Q9967

== ENCOUNTER → 2024-08-14 | Outpatient (CLI) | payer MEDICAID ==
--- NOTE | 2024-08-18 07:59 | US ---
EXAMINATION TYPE: US groin RT DATE OF EXAM: 08/14/2024 COMPARISON: NONE CLINICAL INDICATION: Male, 64 years old with history of R59.1 Lymphadenopathy; lymphadenopathy TECHNIQUE: several images taken at area of concern FINDINGS: largest lymph node measures 4.2x0.7x1.2cm. No thickened cortex evident. IMPRESSION: 1. Right inguinal adenopathy [facility] Keeley Birmignham, , 08/18/2024 7:57 AM
== END | disposition home or self-care (01) ==
LOC: RADUSWWP 15:27
PROVIDERS: ATTEND Internal Medicine
DX: R59.1 Generalized enlarged lymph nodes (principal)

== ENCOUNTER → 2024-12-20 | Outpatient (CLI) | payer BC ==
[2024-12-20 10:14] LABS: Basophils # (A) 0.08 X 10*3/uL (0.00-0.10); Eosinophils % (A) 1.2 %; HCT 45.9 % (39.6-50.0); HGB 15.9 g/dL (13.0-17.0); Lymphocytes # (A) 2.27 X 10*3/uL (0.90-5.00); Lymphocytes % (A) 28.3 %; MCH 32.1 pg (27.0-32.0); MCHC 34.6 g/dL (32.0-37.0); MCV 92.5 FL (80.0-97.0); Mean Platelet Volume 11.2 FL (9.5-12.2); Monocytes # (A) 0.63 X 10*3/uL (0.20-1.00); Monocytes % (A) 7.9 %; NRBC Per 100 WBC 0 X 10*3/uL (0.00-0.01); Neutrophils # (A) 4.91 X 10*3/uL (1.80-7.70); Neutrophils % (A) 61.4 %; Platelet Count 190 X 10*3/uL (140-440); RBC 4.96 X 10*6/uL (4.40-5.60); RDW 12.3 % (11.5-14.5); WBC 8.01 X 10*3/uL (4.50-10.00)
== END | disposition home or self-care (01) ==
LOC: LABPAT 07:53
PROVIDERS: ATTEND Surgery
DX: Z01.818 Encounter for other preprocedural examination (principal); K40.90 Unilateral inguinal hernia, without obstruction or gangrene, not specified as recurrent; K42.9 Umbilical hernia without obstruction or gangrene
CPT/HCPCS: 85025; 86850; 86900; 86901; 93005

== ENCOUNTER 2025-01-01 05:32 | Day surgery (SDC) | payer BC, MEDICAID ==
[2025-01-01] MEDS ORDERED: LACTATED RINGERS 1,000 ML IV SCH (06:17)
[2025-01-01] MEDS ORDERED: HYDROmorphone 0.5 MG/0.5 ML SYRINGE IVP PRN (06:17)
[2025-01-01] MEDS ORDERED: DEXAMETHASONE SOD PHOSPHATE 4 MG/ML 1 ML VIAL IV ONE (06:17)
[2025-01-01] MEDS ORDERED: ONDANSETRON 4 MG/2 ML VIAL IVP ONE (06:17)
[2025-01-01 06:24] VITALS: TEMP 97.9
[2025-01-01 06:38] LABS: Glucose,Whole Blood 126 mg/dL (70-110)
[2025-01-01] MEDS: IV FLUID CONTINUATION 1,000 ML IV ONE ×2 (06:54→10:51)
[2025-01-01] MEDS: LACTATED RINGERS 1,000 ML IV SCH (07:00)
[2025-01-01] MEDS: ACETAMINOPHEN TAB 500 MG TAB PO PRN (07:00)
[2025-01-01] MEDS: DEXAMETHASONE SOD PHOSPHATE 4 MG/ML 1 ML VIAL IV ONE (07:00)
[2025-01-01] MEDS: HEPARIN SODIUM,PORCINE 5,000 UNIT/ML 1 ML VIAL SQ PRN (07:01)
[2025-01-01] MEDS: ONDANSETRON 4 MG/2 ML VIAL IVP ONE (07:01)
[2025-01-01] MEDS: MIDAZOLAM 2 MG/2 ML VIAL IV ONE (07:22)
[2025-01-01] MEDS ORDERED: MIDAZOLAM 2 MG/2 ML VIAL ONE (07:34)
[2025-01-01] MEDS ORDERED: DEXAMETHASONE SOD PHOSPHATE 4 MG/ML 1 ML VIAL ONE (07:34)
[2025-01-01] MEDS ORDERED: LIDOCAINE 1% INJ 10MG/ML (20 ML MDV) ONE (07:34)
[2025-01-01] MEDS ORDERED: ROPIVACAINE 5 MG/ML 30 ML VIAL ONE (07:34)
[2025-01-01] MEDS ORDERED: SUCCINYLCHOLINE CHLORIDE 200 MG/10 ML VIAL IV ONE (07:34)
[2025-01-01] MEDS ORDERED: ROCURONIUM 10 MG/ML (5 ML VIAL) IV ONE (07:34)
[2025-01-01] MEDS ORDERED: NEOSTIGMINE 1 MG/ML 10 ML VIAL ONE (07:34)
[2025-01-01] MEDS ORDERED: PROPOFOL 10 MG/ML 20 ML VIAL IV ONE (07:34)
[2025-01-01] MEDS ORDERED: fentaNYL (PF) 50 MCG/ML 2 ML AMP ONE (07:34)
[2025-01-01] MEDS ORDERED: GLYCOPYRROLATE 0.2 MG/ML 2 ML VIAL ONE (07:34)
--- NOTE | 2025-01-01 07:38 | P.GSHP ---
History of Present Illness H&P Date: 01/01/25 Chief Complaint: Umbilical hernia and right inguinal hernia 64-year-old male seen in the office last July. Patient with complaints of a bulge at the umbilicus and also in the right groin. Mild soreness at times at both locations. Imaging shows right inguinal hernia. No symptoms in the left groin. Non-smoker. Past Medical History Past Medical History: Diabetes Mellitus, Hyperlipidemia, Hypertension, Musculoskeletal Disorder Additional Past Medical History / Comment(s): RT KNEE INJURY. BRONCHITIS. Type II DM History of Any Multi-Drug Resistant Organisms: None Reported Past Surgical History: Orthopedic Surgery Additional Past Surgical History / Comment(s): VASECTOMY, COLONOSCOPY, Rt. knee arthroscopy Past Anesthesia/Blood Transfusion Reactions: No Reported Reaction Smoking Status: Former smoker - Past Family History Mother Family Medical History: Cancer Additional Family Medical History / Comment(s): KIDNEY CA Medications and Allergies Home Medications Medication Instructions Recorded Confirmed Type Atorvastatin [Lipitor] 10 mg PO AC-SUPPER 04/18/19 12/27/24 History Ibuprofen [Motrin] 800 mg PO DIRECTED PRN 04/18/19 12/27/24 History amLODIPine BESYLATE 10 mg PO AC-SUPPER 04/18/19 12/27/24 History Losartan [Cozaar] 50 mg PO AC-SUPPER 07/21/23 12/27/24 History Semaglutide [Ozempic] 0.25 mg SQ SAHA 07/21/23 12/27/24 History Allergies Allergy/AdvReac Type Severity Reaction Status Date / Time No Known Allergies Allergy Verified 01/01/25 06:18 Surgical - Exam Vital Signs Temp Pulse Resp BP Pulse Ox 97.9 F 64 16 133/67 97 01/01/25 06:22 01/01/25 06:22 01/01/25 06:22 01/01/25 06:22 01/01/25 06:22 Physical exam: General: Well-developed, well-nourished HEENT: Normocephalic, sclerae nonicteric Abdomen: Nontender, nondistended, reducible umbilical hernia, reducible right inguinal hernia Extremities: No edema Neuro: Alert and oriented Results - Labs Abnormal Lab Results - Last 24 Hours (Table) 01/01/25 Range/Units 06:33 POC Glucose (mg/dL) 126 H (70-110) mg/dL Assessment and Plan (1) Umbilical hernia Narrative/Plan: 64-year-old male with umbilical and right inguinal hernia. Will proceed with laparoscopic da Vicky assisted repair right inguinal hernia with mesh, possible open with open repair umbilical hernia repair with mesh at this time. Risks of bleeding, infection, recurrence, chronic pain, bladder and bowel injury, numbness, conversion to an open procedure, scarring, and anesthesia related complications were discussed. The correlation between hernia recurrence, obesity and smoking were reviewed in detail. The patient understands and wishes to proceed. Current Visit: Yes Status: Acute Code(s): K42.9 - UMBILICAL HERNIA WITHOUT OBSTRUCTION OR GANGRENE SNOMED Code(s): 390253342
[2025-01-01] MEDS: BUPIVACAINE (PF) 0.25% 30 ML VIAL SQ ONE ×2 (08:02→09:48)
[2025-01-01 10:29] LABS: Glucose,Whole Blood 156 mg/dL (70-110)
[2025-01-01] MEDS ORDERED: ACETAMINOPHEN TAB 325 MG TAB PO SCH (10:30)
--- NOTE | 2025-01-01 10:32 | P.OP ---
Date of Procedure: 01/01/25 Procedure(s) Performed: PREOPERATIVE DIAGNOSIS: Right inguinal hernia, umbilical hernia POSTOPERATIVE DIAGNOSIS: Same PROCEDURE: Laparoscopic da Vicky assisted repair right inguinal hernia with mesh, open umbilical hernia with mesh SURGEON: Dr. Little ANESTHESIA: General EBL: 20 cc OPERATIVE PROCEDURE DETAILS: Patient was placed in the operating table in the supine position. The patient was placed under general anesthesia. The abdomen was prepped and draped in usual sterile fashion. A small curvilinear supraumbilical incision was made. The fascia was dissected. The patient's hernia was freed of the overlying umbilicus. The dermis of the umbilicus was mobilized. The hernia contents were reduced back into the preperitoneal space. The fascial defect was 8 mm in size. 2 separate 0 Ethibond sutures were used laterally to decrease the size of this opening so that the trocar would not be loose. A small opening in the hernia sac was made. Through that opening the 8 mm trocar was passed. Insufflation took place to 15 mmHg. An 8 mm trocar was placed into the peritoneal cavity. 2 additional 8 mm trochars were placed in the right upper quadrant and left upper quadrant under visualization. The robotic arms were then brought in and docked into place. The fenestrated bipolar was used in the left arm and the laparoscopic marva was utilized in the right arm. A 30 8 mm scope was used in the up position. The peritoneal cavity was inspected. The patient had a small to medium sized right direct inguinal hernia. A incision was created on the peritoneum across the right lower abdomen superior to the bladder. The preperitoneal dissection took place bilaterally at that time. The direct hernia on the right-hand side was reduced using blunt dissection. Maxim's ligament and the pubic symphysis were well- visualized. A small developing right femoral hernia was also noted and reduced. Once we had good exposure inferior to the Maxim's ligament and vessels a 15 x 10 cm ProGrip mesh was placed. This was sutured to Maxim's ligament using a short running absorbable 3 oh V-Loc suture. The peritoneal defect was then closed using a absorbable 2-0 VLok suture. The hernia sac was incorporated into the peritoneal closure to help prevent future recurrence. The pneumoperitoneum was then evacuated. The umbilical hernia was then addressed. The previous sutures were removed. The preperitoneal space was fully dissected circumferentially. The hole in the peritoneum was closed using a 3-0 Vicryl stitch. Once I had adequate space a 6 x 4 cm Ventralex mesh was placed in an underlay position. This was sutured to the fascia using transfascial 0 Ethibond sutures. The fascial defect measured 3.2 x 2 cm. The fascial defect was then closed horizontally using interrupted horizontal mattress 0 Ethibond sutures. The umbilicus was sutured back down to the fascia using a [id number] 2-0 Vicryl suture. Subcutaneous layer was closed using interrupted 3-0 Vicryl sutures. The skin of all 3 sites was closed using a 4-0 Monocryl stitch. Skin glue was then applied. TYPE OF MESH USED: Progrip 15 x 10, Ventralex 6.4 cm LOCATION OF MESH: Preperitoneal/sub-lay FIXATION: Absorbable 30V lock PREOPERATIVE DISCUSSION ON SMOKING CESSASTION: Yes PREOPERATIVE DISCUSSION ON MORBID OBESITY: Yes PREOPERATIVE DISCUSSION ON APPROPRIATE USE OF NARCOTIC USE: Yes PREOPERATIVE EDUCATION: Multi Modal, Smoking Cessation and Weight Loss with BMI over 35. DISPOSITION: Stable to recovery room
[2025-01-01] MEDS: HYDROmorphone 0.5 MG/0.5 ML SYRINGE IVP PRN (10:40)
[2025-01-01 12:17] VITALS: RESP 20
[2025-01-01 12:18] VITALS: BP 123/76; PULSE 68
[2025-01-01] MEDS ORDERED: IBUPROFEN 600 MG TAB PO SCH (13:30)
--- NOTE | 2025-01-02 11:16 | P.ANPRN ---
Procedure Note - Anesthesia - Nerve Block Performed Bilateral Erector Spinae Single Time Out Performed: Yes Date of Procedure: 01/01/25 Procedure Start Time: : Procedure Stop Time: Location of Patient: PreOp Indication: Acute Post-Operative Pain, Requested by Surgeon Sedation Type: Sedate with meaningful contact maintained Preparation: Sterile Prep Position: Prone Needle Types: Pajunk Needle Gauge: 21 Ultrasound used to visualize needle placement: Yes Ultrasound used to observe medication spread: Yes Blood Aspirated: No Pain Paresthesia on Injection Noted: No Resistance on Injection: Normal Image Stored and Saved: Yes Events: Uneventful and Well Tolerated (Ropivacaine 0.5% 15 cc plus normal saline 10 cc plus dexamethasone 4 mg given bilaterally at L1)
--- NOTE | 2025-01-02 11:19 | P.ANPRN ---
Procedure Note - Anesthesia - Nerve Block Performed Right Erector Spinae Single Time Out Performed: Yes Date of Procedure: 01/01/25 Procedure Start Time: 09:52 Procedure Stop Time: 10:00 Location of Patient: PreOp Indication: Acute Post-Operative Pain, Requested by Surgeon Sedation Type: Sedate with meaningful contact maintained Preparation: Sterile Prep Position: Prone Needle Types: Pajunk Needle Gauge: 21 Ultrasound used to visualize needle placement: No Ultrasound used to observe medication spread: No Blood Aspirated: No Pain Paresthesia on Injection Noted: No Resistance on Injection: Normal Image Stored and Saved: Yes Events: Uneventful and Well Tolerated (Ropivacaine 0.5% 15 cc plus normal saline 10 cc plus dexamethasone 4 mg given at L1 on the right side)
== END 2025-01-01 13:22 | disposition home or self-care (01) ==
LOC: OR 05:32
PROVIDERS: ATTEND Surgery
DX: K40.90 Unilateral inguinal hernia, without obstruction or gangrene, not specified as recurrent (principal); K42.9 Umbilical hernia without obstruction or gangrene; G89.18 Other acute postprocedural pain; E11.9 Type 2 diabetes mellitus without complications; E78.5 Hyperlipidemia, unspecified; I10 Essential (primary) hypertension; Z79.85 Long-term (current) use of injectable non-insulin antidiabetic drugs
CPT/HCPCS: 64488; 49591; 49650; C1781 ×2; J2250; J0330; J1644; J1100; J2710; J0690; J2405; J2003; J3010; J2795; J2704; J1171; J0665; J1596

== ENCOUNTER → 2025-05-30 | Outpatient (CLI) | payer BC ==
[2025-05-30 15:14] LABS: Basophils # (A) 0.06 X 10*3/uL (0.00-0.10); Basophils % (A) 0.7 %; Eosinophils # (A) 0.11 X 10*3/uL (0.04-0.35); Eosinophils % (A) 1.3 %; HCT 44.2 % (39.6-50.0); HGB 15.1 g/dL (13.0-17.0); Immature Grans, Automated 0.60 %; Lymphocytes # (A) 2.45 X 10*3/uL (0.90-5.00); Lymphocytes % (A) 29.2 %; MCH 31.9 pg (27.0-32.0); MCHC 34.2 g/dL (32.0-37.0); MCV 93.4 FL (80.0-97.0); Monocytes # (A) 0.78 X 10*3/uL (0.20-1.00); Monocytes % (A) 9.3 %; NRBC Per 100 WBC 0 X 10*3/uL (0.00-0.01); Neutrophils # (A) 4.94 X 10*3/uL (1.80-7.70); Neutrophils % (A) 58.9 %; Platelet Count 205 X 10*3/uL (140-440); RBC 4.73 X 10*6/uL (4.40-5.60); RDW 12.5 % (11.5-14.5); WBC 8.39 X 10*3/uL (4.50-10.00)
[2025-05-30 15:32] LABS: ALT 45 U/L (10-49); AST 34 U/L (14-35); Albumin 4.6 g/dL (3.8-4.9); Albumin/Globulin Ratio 2.30 Ratio (1.60-3.17); Alkaline Phosphatase 103 U/L (41-126); Anion Gap 16.20 mmol/L (4.00-12.00); BUN/Creat Ratio 14.56 Ratio (12.00-20.00); Blood Urea Nitrogen 13.1 mg/dL (9.0-27.0); Calcium 9.2 mg/dL (8.7-10.3); Carbon Dioxide 23.8 mmol/L (21.6-31.8); Chloride 104 mmol/L (96-109); Cholesterol 151.00 mg/dL (0.00-200.00); Globulin 2.0 g/dL (1.6-3.3); Glucose 109 mg/dL (70-110); HDL Cholesterol 53.20 mg/dL (40.00-60.00); LDL Cholesterol,Calculated 81.0 mg/dL (0.0-131.0); Magnesium 2.2 mg/dL (1.5-2.4); PSA Annual Screen 3.970 ng/mL (0.000-4.000); Potassium 4.7 mmol/L (3.5-5.5); Sodium 144 mmol/L (135-145); Total Protein 6.6 g/dL (6.2-8.2); Triglycerides 84.00 mg/dL (0.00-149.00); VLDL Calculation 16.80 mg/dL (5.00-40.00)
== END | disposition home or self-care (01) ==
LOC: LABWHC1 10:33
PROVIDERS: ATTEND Internal Medicine
DX: Z00.00 Encounter for general adult medical examination without abnormal findings (principal); Z12.5 Encounter for screening for malignant neoplasm of prostate; E11.9 Type 2 diabetes mellitus without complications
CPT/HCPCS: 80061; 80053; 84443; 83735; 85025; 83036; 36415; G0103